=== PATIENT | female | born 1970 | race Caucasian/White ===

== ENCOUNTER 2020-05-15 12:31 | Observation (INO) | payer BC ==
[2020-05-12 11:49] LABS: BASOPHILS # (AUTO) 0.03 x10^3/uL (0-0.1); BASOPHILS % (AUTO) 0 % (0-1); EOSINOPHILS # (AUTO) 0.12 x10^3/uL (0-0.4); EOSINOPHILS % (AUTO) 1 % (1-7); LYMPHOCYTES # (AUTO) 2.07 x10^3/uL (1-3.4); LYMPHOCYTES % (AUTO) 24 % (22-44); MD NO; MEAN CORPUSCULAR HEMOGLOBIN 32.2 pg (27.0-34.8); MEAN CORPUSCULAR VOLUME 100.5 fL (80-100); MEAN PLATELET VOLUME 9.1 fL (7.4-10.4); MONOCYTES # (AUTO) 0.58 x10^3/uL (0.2-0.8); MONOCYTES % (AUTO) 7 % (2-9); NEUTROPHILS # (AUTO) 5.76 x10^3/uL (1.8-6.8); NEUTROPHILS % (AUTO) 67 % (42-75); PLATELET COUNT 223 x10^3/uL (130-400); RED BLOOD COUNT 3.92 x10^6/uL (3.82-5.3); RED CELL DISTRIBUTION WIDTH 14.4 % (9.6-15.2)
[2020-05-12 11:58] LABS: ANION GAP 6 mmol/L (5-15); CALCIUM 8.6 mg/dL (8.5-10.1); CHLORIDE 108 mmol/L (98-107)
[2020-05-12 12:00] LABS: CREATININE 0.78 mg/dL (0.55-1.02)
[2020-05-12 12:04] LABS: INTERNATIONAL NORMALIZED RATIO 0.93 (0.93-1.1); PROTHROMBIN TIME 9.9 Seconds (9.6-11.5)
[2020-05-12 12:48] LABS: MICROSCOPIC NOT IND
[~2020-05-15] VITALS: Ht 170.2 cm; Wt 68.3 kg
[~2020-05-15 12:31] MED LIST: ACET-1600 PO; HYDROCODONE PO
[2020-05-15] MEDS ORDERED: LACTATED RINGERS 1,000 ML IV SCH (12:58)
[2020-05-15] MEDS ORDERED: ACETAMINOPHEN 500 MG TABLET PO ONE (13:00)
[2020-05-15] MEDS ORDERED: CHLORHEXIDINE 15 ML UDC MM ONE (13:00)
[2020-05-15] MEDS ORDERED: GABAPENTIN 300 MG CAPSULE PO ONE (13:00)
[2020-05-15] MEDS ORDERED: OXYcodone IR 5MG TABLET PO ONE (13:00)
[2020-05-15 13:43] LABS: HCG UR SG 1.018 (1.003-1.030)
[2020-05-15] MEDS ORDERED: EPINEPHRINE 1 MG/ML, 1ML ONE (14:29)
[2020-05-15] MEDS ORDERED: BUPIVACAINE/PF 0.25% ONE (14:29)
[2020-05-15] MEDS ORDERED: BACITRACIN 50,000 UNIT ONE (14:29)
[2020-05-15] MEDS ORDERED: methylPREDNISolone SOD SUCC 125 MG/2 ML ONE (14:29)
[2020-05-15] MEDS ORDERED: FENTANYL PF 250 MCG/5ML ONE (15:52)
[2020-05-15] MEDS ORDERED: MIDAZOLAM 1 MG/ML, 2ML ONE (15:52)
[2020-05-15] MEDS ORDERED: LIDOCAINE-MPF 2% ,5ML ONE (15:52)
[2020-05-15] MEDS ORDERED: LABETALOL 5MG/ML, 20ML IV PRN (16:00)
[2020-05-15] MEDS ORDERED: PROMETHAZINE 25 MG/ML, 1ML IVPush PRN (16:00)
[2020-05-15] MEDS ORDERED: ACETAMINOPHEN 325 MG TABLET PO PRN (16:00)
[2020-05-15] MEDS ORDERED: HYDROmorphone 1 MG/ML, 1ML INJ IVPush PRN (16:00)
[2020-05-15] MEDS ORDERED: hydrALAzine 20 MG/ML, 1ML IV PRN (16:00)
[2020-05-15] MEDS ORDERED: ONDANSETRON 2MG/ML, 2ML IVPush PRN (16:00)
[2020-05-15] MEDS ORDERED: EPHEDRINE 50 MG/ML, 1ML IVPush PRN (16:00)
[2020-05-15] MEDS ORDERED: MEPERIDINE/PF 25MG/0.5ML IVPush PRN (16:00)
[2020-05-15] MEDS ORDERED: OXYcodone 5 MG/5 ML ORAL.SOL UDC PO PRN (16:00)
[2020-05-15] MEDS ORDERED: KETOROLAC 30 MG/1 ML ONE (16:20)
[2020-05-15] MEDS ORDERED: SUCCINYLCHOLINE 20 MG/ML, 10ML ONE (16:40)
[2020-05-15] MEDS ORDERED: PROPOFOL 10 MG/ML, 20ML ONE (16:40)
[2020-05-15] MEDS ORDERED: DEXAMETHASONE 4 MG/ML, 1ML ONE (16:40)
[2020-05-15] MEDS ORDERED: CEFAZOLIN 1,000 MG ONE (16:40)
[2020-05-15] MEDS ORDERED: ONDANSETRON 2MG/ML, 2ML ONE (16:40)
[2020-05-15] MEDS ORDERED: FENTANYL PF 100 MCG/2ML ONE ×3 (16:49→17:50)
[2020-05-15] MEDS ORDERED: OXYcodone 5 MG/5 ML ORAL.SOL UDC ONE (17:50)
[2020-05-15] MEDS: FENTANYL PF 100 MCG/2ML IV PRN ×2 (18:03→18:15)
[2020-05-15 19:00] VITALS: BP 116/76
[2020-05-15] MEDS ORDERED: BISACODYL 10 MG SUPP PR PRN (19:30)
[2020-05-15] MEDS ORDERED: ONDANSETRON 2MG/ML, 2ML IV PRN (19:30)
[2020-05-15] MEDS ORDERED: MAGNESIUM HYDROXIDE 8%, 30ML UDC PO PRN (19:30)
[2020-05-15] MEDS ORDERED: DIPHENHYDRAMINE 50 MG/ML, 1ML IVPush PRN (19:30)
[2020-05-15] MEDS ORDERED: HYDROcodone/APAP 10/325 MG TABLET PO PRN (19:30)
[2020-05-15] MEDS ORDERED: PROMETHAZINE 25 MG/ML, 1ML IM PRN (19:30)
[2020-05-15] MEDS ORDERED: OXYcodone/APAP 5/325MG TABLET PO PRN (19:30)
[2020-05-15] MEDS ORDERED: SODIUM CHLORIDE 0.9% 1,000ML IV PRN (19:30)
[2020-05-15] MEDS ORDERED: morphine SULFATE 10 MG/ML, 1ML IV PRN (19:30)
[2020-05-15] MEDS ORDERED: TIZANIDINE 2MG TABLET PO PRN (20:00)
[2020-05-15] MEDS ORDERED: DIPHENHYDRAMINE 25 MG CAPSULE PO PRN (20:00)
[2020-05-15] MEDS: NS + 20MEQ KCL 1,000 ML IV SCH (21:49)
[2020-05-16 00:08] VITALS: BP 82/48
[2020-05-16 04:03] VITALS: BP 83/49
[2020-05-16] MEDS: NS + 20MEQ KCL 1,000 ML IV SCH (05:30)
[2020-05-16 07:40] VITALS: BP 97/55
[2020-05-16] MEDS ORDERED: OXYcodone/APAP 5/325MG PO (08:32)
[2020-05-16] MEDS ORDERED: TIZA2TAB4 PO (08:32)
[2020-05-16] MEDS ORDERED: SENNA/DOCUSATE TABLET PO SCH (09:00)
== END 2020-05-16 11:00 | disposition home or self-care (01) ==
LOC: OUT 12:31 → EDSTATUS 16:00 → 4NE 19:00 → OUT 23:22 → 4NE 23:22 → DCLOUNGE 05-16 10:46
PROVIDERS: ADMIT Neurological Surgery; ATTEND Neurological Surgery
DX: Z03.818 Encounter for observation for suspected exposure to other biological agents ruled out (principal); M51.17 Intervertebral disc disorders with radiculopathy, lumbosacral region; Z79.899 Other long term (current) drug therapy
CPT/HCPCS: 36415; 63030; 71046; 72100; 80048; 81003; 81025; 85025; 85610; 85730; 87635; 93005; 96360; 96361; 97161; 97165; G0378; J0171; J0330; J0690; J1100; J1885; J2250; J2405; J2704; J2930; J3010; J3480; J3490; J7120